=== PATIENT | female | born 1955 | race Caucasian/White ===

== ENCOUNTER 2018-11-15 08:55 | Emergency (ER) | payer MEDICARE ==
[~2018-11-15] VITALS: Ht 160 cm; Wt 68.0 kg
[2018-11-15] MEDS ORDERED: PLAVIX75 MG PO (09:14)
[2018-11-15] MEDS ORDERED: DOXYCYCLINE HY100 MG PO (09:59)
== END 2018-11-15 10:50 | disposition home or self-care (01) ==
LOC: ED 08:55
PROC: 0HQ0XZZ Repair Scalp Skin, External Approach (ICD-10-PCS; principal; 2018-11-15)
DX: S01.01XA Laceration without foreign body of scalp, initial encounter (principal); Z86.73 Personal history of transient ischemic attack (TIA), and cerebral infarction without residual deficits; Z88.0 Allergy status to penicillin; W55.03XA Scratched by cat, initial encounter
CPT/HCPCS: 12002; 85025; 85610; 90715; 99283-25; J7040

== ENCOUNTER 2018-11-23 17:21 | Emergency (ER) | payer MEDICARE ==
[~2018-11-23] VITALS: Ht 160 cm; Wt 68.0 kg
--- OUTSIDE RECORDS SUMMARY | ~2018-11-23 | XMS | Clinical Summary ---
Demographics + + + | Address | [address] | | | [place] [address] | + + + | Home Phone | | + + + | Preferred Language | Unknown | + + + | Marital Status | | + + + | Catholic Affiliation | Unknown | + + + | Race | Unknown | + + + | Ethnic Group | Unknown | + + + Author + + + | Author | [facility] | | | and [place] | + + + | Organization | [facility] | | | and [place] | + + + | Address | Unknown | + + + | Phone | Unavailable | + + + Support + + + + + | Name | Relationship | Address | Phone | + + + + + | [place] | ECON | [address] | | | | | [place] | | | | | [address] | | + + + + + Care Team Providers + +------+ + | Care International Trade Compliance Manager Name | Role | Phone | + +------+ + | Oliverio Orosco DO | PP | | + +------+ + Allergies + + + + + + | Active Allergy | Reactions | Severity | Noted | Comments | | | | | Date | | + + + + + + | Penicillins | Swelling | | 01/23/20 | | | | | | 17 | | + + + + + + Medications + + + +---------+------+------+-------+ | Medication | Sig | Dispensed | Refills | Star | End | Statu | | | | | | t | Date | s | | | | | | Date | | | + + + +---------+------+------+-------+ | aspirin 81 MG EC | Take 1 tablet by | 30 | 0 | 08/0 | | Activ | | tabletIndications: | mouth Daily. | tablet | | 4/20 | | e | | Acute embolic stroke | | | | 17 | | | | (HCC) | | | | | | | + + + +---------+------+------+-------+ Active Problems + + + | Problem | Noted Date | + + + | Expressive aphasia | 03/15/2017 | + + + | Acute embolic stroke | 01/22/2017 | + + + | Carotid arterial disease | 01/22/2017 | + + + | Cigarette nicotine dependence without complication | 01/22/2017 | + + + Family History + + +------+ + | Medical History | Relation | Name | Comments | + + +------+ + | Stroke | Father | | | + + +------+ + | Stroke | Mother | | | + + +------+ + + +------+--------+ + | Relation | Name | Status | Comments | + +------+--------+ + | Father | | | | + +------+--------+ + | Mother | | | | + +------+--------+ + Social History + +-------+ +--------+------+ | Tobacco Use | Types | Packs/Day | Years | Date | | | | | Used | | + +-------+ +--------+------+ | Current Every Day | | 0.5 | | | | Smoker | | | | | + +-------+ +--------+------+ + +---+---+---+ | Smokeless Tobacco: | | | | | Never Used | | | | + +---+---+---+ + + +---------+ + | Alcohol Use | Drinks/We | oz/Week | Comments | | | ek | | | + + +---------+ + | Yes | | | | + + +---------+ + + + + | Sex Assigned at | Date Recorded | | | | + + + | Not on file | | + + + + + + + | Job Start Date | Occupation | Industry | + + + + | Not on file | Not on file | Not on file | + + + + + + + + | Travel History | Travel Start | Travel End | + + + + + + | No recent travel history available. | + + Last Filed Vital Signs + + + + | Vital Sign | Reading | Time Taken | + + + + | Blood Pressure | 146/85 | 03/15/2017 1344 PDT | + + + + | Pulse | 68 | 03/15/2017 1344 PDT | + + + + | Temperature | 36.5 C (97.7 F) | 03/15/20171343 PDT | + + + + | Respiratory Rate | 16 | 03/15/20171343 PDT | + + + + | Oxygen Saturation | 98% | 01/25/2017 1139 PDT | + + + + | Inhaled Oxygen | - | - | | Concentration | | | + + + + | Weight | 65.3 kg (144 lb 1 | 03/15/20171343 PDT | | | oz) | | + + + + | Height | 153.5 cm (5' 0.43") | 03/15/20171343 PDT | + + + + | Body Mass Index | 27.73 | 03/15/2017 1344 PDT | + + + + Plan of Treatment + + + + + | Health Maintenance | Due Date | Last Done | Comments | + + + + + | Hepatitis C | | | | | Screening | 7 | | | + + + + + | Vaccine: | | | | | Dtap/Tdap/Td (1 - | 6 | | | | Tdap) | | | | + + + + + | Vaccine: | | | | | Pneumococcal 19-64 | 6 | | | | (PPSV23 only) Medium | | | | | Risk (1 of 1 - | | | | | PPSV23) | | | | + + + + + | Cervical Cancer | | | | | Screening (Pap) | 7 | | | + + + + + | Breast Cancer | | | | | Screening (Ages | 7 | | | | 50-74) | | | | + + + + + | Colorectal Cancer | | | | | Screening | 7 | | | | (Colonoscopy) | | | | + + + + + | Vaccine: Zoster (1 | | | | | of 2) | 7 | | | + + + + + | Statin Therapy | | | | | (optimal intensity) | 5 | | | + + + + + | Vaccine: Influenza | | | | | (Season Ended) | 9 | | | + + + + + Results Not on filefrom Last 3 Months Advance Directives Patient has advance care planning documents, and code status on file. For more information, please contact:[facility] [place] [address] + + + + + | Code Status | Date | Date | Comments | | | Activated | Inactivated | | + + + + + | Full Code | 01/22/2017 | 01/25/2017 | | | | 8:35 | 17:34 | | + + + + +
--- OUTSIDE RECORDS SUMMARY | ~2018-11-23 | XMS | Clinical Summary ---
Demographics + + + | Address | [address] | | | [place] [address] | + + + | Home Phone | | + + + | Preferred Language | Unknown | + + + | Marital Status | | + + + | Pentecostal Affiliation | Unknown | + + + | Race | Unknown | + + + | Ethnic Group | Unknown | + + + Author + + + | Author | [facility] | | | and [place] | + + + | Organization | [facility] | | | and [...] | | | | | [place] | | | | | [address] | | + + + + + Care Team Providers + +------+ + | Care Registered Phlebotomist Part Time Name | Role | Phone | + [...] status on file. For more information, please contact:[facility] [place] [address] + + + + + | Code Status | Date | Date | Comments | | | Activated | Inactivated | | + + + + + | Full Code | 01/22/2017 | 01/25/2017 | | | | 8:35 | 17:34 | | + + + + +
[~2018-11-23 17:21] MED LIST: DOXYCYCLINE HY100 MG PO; PLAVIX75 MG PO
--- OUTSIDE RECORDS SUMMARY | 2018-11-23 17:24 | XMS ---
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 Josie VISIT COUNT (12 MO.) 2 [facility] TOTAL 2 NOTE: Visits indicate total known visits. ED/UCC VISIT TRACKING (12 MO.) 11/23/2018 17:23 [facility] TYPE: Emergency COMPLAINT: - STAPLE REMOVAL/SWEATING/TINGLING IN HANDS 11/15/2018 08:56 [facility] [place] TYPE: Emergency COMPLAINT: - HEAD LAC DIAGNOSES: - Scratched by cat, initial encounter - Personal history of transient ischemic attack (TIA), and cerebral infarction without residual deficits - Allergy status to penicillin - Laceration without foreign body of scalp, initial encounter INPATIENT VISIT TRACKING (12 MO.) No inpatient visits to display in this time frame [email or web address]
[2018-11-23] MEDS ORDERED: ZOLOFT25 MG PO (17:50)
[2018-11-23] MEDS ORDERED: ASPIR 8181 MG PO (17:51)
[2018-11-23] MEDS ORDERED: LIPITOR80 MG GT (17:51)
[2018-11-23] MEDS ORDERED: ZESTRIL5 MG PO (17:51)
== END 2018-11-23 18:27 | disposition home or self-care (01) ==
LOC: ED 17:21
DX: S01.01XD Laceration without foreign body of scalp, subsequent encounter (principal); I10 Essential (primary) hypertension; R20.2 Paresthesia of skin; Z88.0 Allergy status to penicillin; Z79.899 Other long term (current) drug therapy
CPT/HCPCS: 99283

== ENCOUNTER 2020-11-05 15:39 | Emergency (ER) | payer MEDICARE ==
[~2020-11-05] VITALS: Ht 160 cm; Wt 69.8 kg
[~2020-11-05 15:39] MED LIST changes: +ASPIR 8181 MG PO; +LIPITOR80 MG GT; +ZESTRIL5 MG PO; +ZOLOFT25 MG PO
[2020-11-05] MEDS ORDERED: METOPROLOL SUCC50 MG PO (15:50)
[2020-11-05] MEDS ORDERED: AMLODIPINE BESY10 MG PO (15:50)
[2020-11-05] MEDS ORDERED: CLOPIDOGREL75 MG PO (15:51)
[2020-11-05] MEDS ORDERED: SERTRALINE HCL100 MG PO (15:51)
[2020-11-05] MEDS ORDERED: METFORMIN HYDRO25 GM (15:51)
== END 2020-11-05 18:11 | disposition home or self-care (01) ==
LOC: ED 15:39
PROC: 0HQ0XZZ Repair Scalp Skin, External Approach (ICD-10-PCS; principal; 2020-11-05)
DX: S01.01XA Laceration without foreign body of scalp, initial encounter (principal); S50.12XA Contusion of left forearm, initial encounter; W01.10XA Fall on same level from slipping, tripping and stumbling with subsequent striking against unspecified object, initial encounter; F17.200 Nicotine dependence, unspecified, uncomplicated; Z88.0 Allergy status to penicillin; Z79.899 Other long term (current) drug therapy; Z79.84 Long term (current) use of oral hypoglycemic drugs; Z79.82 Long term (current) use of aspirin
CPT/HCPCS: 12002; 70450; 99284-25

== ENCOUNTER 2020-11-18 10:58 | Emergency (ER) | payer MEDICARE ==
[~2020-11-18] VITALS: Ht 160 cm; Wt 69.8 kg
[~2020-11-18 10:58] MED LIST changes: +AMLODIPINE BESY10 MG PO; +CLOPIDOGREL75 MG PO; +METFORMIN HYDRO25 GM; +METOPROLOL SUCC50 MG PO; +SERTRALINE HCL100 MG PO
--- OUTSIDE RECORDS SUMMARY | 2020-11-18 11:00 | XMS ---
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 Kitty has no Care Guidelines for this patient. [facility] NOTE: Visits indicate total known visits. ED/C VISIT TRACKING (12 MO.) 11/18/2020 10:[address] [facility] [place] TYPE: Emergency COMPLAINT: - STAPLE REMOVAL 11/05/2020 15:[address] 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
== END 2020-11-18 12:21 | disposition home or self-care (01) ==
LOC: ED 10:58
DX: S50.12XA Contusion of left forearm, initial encounter (principal); S01.01XD Laceration without foreign body of scalp, subsequent encounter; W18.30XA Fall on same level, unspecified, initial encounter; F17.200 Nicotine dependence, unspecified, uncomplicated; Z88.0 Allergy status to penicillin; Z79.899 Other long term (current) drug therapy; Z79.82 Long term (current) use of aspirin; Z79.84 Long term (current) use of oral hypoglycemic drugs
CPT/HCPCS: 99283